=== PATIENT | female | born 1965 ===

== ENCOUNTER → 2021-06-08 | Outpatient (CLI) | payer BC ==
--- NOTE | 2021-06-08 15:22 | CONS ---
CONSULTATION REASON FOR CONSULTATION: Sleep apnea. This patient is 55 and she is concerned about sleep apnea. She is snoring louder and at times, she is waking up because of her loud snoring. She has gained around 17-18 pounds during this Covid 19 pandemic and this has made her snoring worse. No witnessed apneas. Her is currently being treated for bladder cancer and he has been noticing that the patient has been snoring loud and he is having difficulties in falling sleep because of the patient's loud snore. As such, she tries to go to sleep after her is sleeping. She goes to bed around 10 p.m., wakes up at 6 a.m. in the morning. She is feeling relatively fatigued during the day. No major hypersomnia or sleepiness. Anawalt score is only at 5. No history of any motor vehicle accident because of feeling drowsy or sleepy. Weight is up by around 17 pounds during the pandemic as mentioned. She does not take any naps during the day. She wakes up on a few occasions in the middle of the night sometimes to help her . Other times without any obvious reasons. No history of any substance abuse. She is a nose breather. 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 PAST MEDICAL HISTORY: Negative. PAST SURGICAL HISTORY: Includes D and C. DRUG ALLERGIES: Not known. She has seasonal allergies. MEDICATIONS: Include Flonase nasal spray. SOCIAL HISTORY: Nonsmoker. No use of alcohol. No history of IV drugs. FAMILY HISTORY: Negative for sleep apnea. Positive for thyroid disease. REVIEW OF SYSTEMS: Fourteen-point review of system was done. Positive findings are mentioned in history of present illness. Otherwise negative. PHYSICAL EXAMINATION: BP is 122/80, pulse 72, respirations 18, temperature 97.4. Saturation 99% on room air. Height is 5 feet 6 inches. Weight is 175 pounds. BMI is 28.2. Anawalt score is at 5. Neck size 13-3/4 of an inch. GENERAL APPEARANCE: Calm, comfortable. HEAD atraumatic, normocephalic. NECK: Supple. No JVD. No goiter or neck masses. Mallampati class 1. LUNGS: Clear to auscultation. HEART: Heart sounds are regular rate and rhythm. Normal S1, S2. No murmurs. ABDOMEN: Soft, nontender. No organomegaly. EXTREMITIES: No edema. No cyanosis or clubbing. IMPRESSION: Loud snoring with suspicion of obstructive sleep apnea symptoms. Needs to be further investigated. The patient has mild hypersomnia. Anawalt score is only at 5. PLAN: 1. Continue optimizing sleep hygiene measures. The patient, however, should be able to sleep longer on average of 7-8 hours per night. 2. Sleep on the side. Keep the head of the bed elevated around 20 degrees at all times. 3. Avoid alcohol drinking at least 3 hours prior to going to bed. 4. Encourage weight loss as the patient has gained around 18 pounds since . 5. We will do a home sleep study to evaluate this patient for sleep apnea and decide accordingly if treatment is needed. The patient is willing to undertake the treatment as long as she has moderate to severe obstructive sleep apnea. She may also consider treatment if she ends up being a mild case and she thinks this may help with her snoring and her 's ability to maintain sleep knowing that they share the same bedroom. MMISAACL / IJN: [id number] /
== END ==
LOC: SLEEP 13:15
PROVIDERS: ATTEND Internal Medicine Critical Care Medicine
DX: G47.10 Hypersomnia, unspecified (principal); R06.83 Snoring
CPT/HCPCS: 99202